=== PATIENT | male | born 2005 | race Caucasian/White ===

== ENCOUNTER 2025-06-15 13:25 | Emergency (ER) | payer SELFPAY ==
[2025-06-15 13:29] VITALS: BP 155/92; PULSE 87; RESP 24; TEMP 36.4; TEMP 36.8; O2SAT 100
[2025-06-15 13:34] VITALS: BP 150/105; PULSE 96; RESP 24; O2SAT 100
--- NOTE | 2025-06-15 13:41 | ED_ITS ---
HPI - Chest Pain General Chief Complaint: Chest Pain Stated Complaint: Overheated Time Seen by Provider: 06/15/25 13:25 Source: patient Mode of arrival: ambulatory Limitations: no limitations History of Present Illness HPI narrative: 19 yo M with no significant medical hx presents states he is sick from the heat. States dizzy, fatigued, vomiting at work. Sat down in triage chair, falling asleep in chair and then began c/o CP. 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 States has been drinking plenty of fluids. All systems reviewed and negative except as noted above. Related Data Home Medications ?Medication ?Instructions ?Recorded ?Confirmed ?Last Taken ?Type No Home Medications 06/15/25 06/15/25 Unknown History Allergies Allergy/AdvReac Type Severity Reaction Status Date / Time No Known Allergies Allergy Verified 06/15/25 13:45 PMFSH Comments At time of signature, agree with nursing past medical, surgical, social and family history. There is no relevant family history pertinent to the presenting complaint. Exam Narrative: GENERAL: This is a well-nourished, well-developed patient, pale, diaphoretic, pain distress HEAD: normocephalic, atraumatic. EYES: PERRL. Sclera clear/white. Vision is grossly intact. EARS: External ears normal, auditory canals clear and without drainage, TMs normal without perforation. Hearing grossly intact. NOSE: External nose normal with no obvious nasal discharge, nares without redness, no rhinorrhea. THROAT: Mucous membranes moist, posterior pharynx clear. NECK: Neck supple, non-tender without lymphadenopathy, masses or thyromegaly. CARDIOVASCULAR: tachycardic without murmurs, gallops, or rubs. RESPIRATORY: Clear to auscultation. tachypnea SKIN: warm, Dry, intact with no suspicious lesions or rash, good texture and turgor. NEURO: awake, alert, and oriented to person, place and time. There were no obvious focal neurologic abnormalities. EXTREMITIES: No joint tenderness, effusion, or edema noted. Course Course Level of Care: Express Care Visit Vital Signs Vital signs: reviewed Transfer Transfered to: [facility] Transportation: ALS Transfer rationale: transferring to ER for labs, hydration Accepting physician: Dr. Espinal MDM - Chest Pain MDM Narrative Medical decision making narrative: transferred to [facility] to treat dehydration/heat exhaustion. pt agrees with plan of care. Discharge Plan Discharge Clinical Impression: Sinus tachycardia, Chest pain, Acute dehydration Patient Disposition: Acute Care Hospital Condition: Stable Patient Language: Setswana Follow-up/Referrals: UNKNOWN,DOCTOR [Primary Care Provider] - Time of Disposition: 13:40
--- NOTE | 2025-06-15 13:50 | ECG_ITS ---
Test Date: 2025-06-15 13:36:50 Measurements Intervals [place] Rate: 91 P: 66 CO: 126 QRS: 86 QRSD: 100 T: 30 QT: 338 QTc: 417 Interpretive Statements SINUS RHYTHM INCOMPLETE RIGHT BUNDLE BRANCH BLOCK ST ELEVATION IN ANTERIOR LEADS, PROBABLY EARLY REPOLARIZATION PEAKED T WAVES- CONSIDER HYPERKALEMIA BASELINE ARTIFACT- I, III, AVR, AVL, AVF, V1-V6 ABNORMAL ECG No previous ECG available for comparison Electronically Signed On 06-15-2025 13:58:21 CDT by Konstantin Carr D.O.
--- NOTE | 2025-06-15 13:51 | ECG_ITS ---
Test Date: 2025-06-15 13:29:38 Measurements Intervals [place] Rate: 114 P: 72 NH: 131 QRS: 96 QRSD: 98 T: 18 QT: 311 QTc: 430 Interpretive Statements SINUS TACHYCARDIA RIGHT AXIS DEVIATION POSSIBLE LEFT ATRIAL ENLARGEMENT INCOMPLETE RIGHT BUNDLE BRANCH BLOCK MINIMAL Q WAVES- INFERIOR LEADS BASELINE ARTIFACT- I, II, III, AVR, AVL, AVF, V1-V6 ABNORMAL ECG No previous ECG available for comparison Electronically Signed On 06-15-2025 14:58:10 CDT by Konstantin Carr D.O.
== END 2025-06-15 13:37 | disposition short-term general hospital (02) ==
PROVIDERS: Emergency Provider Nurse Practitioner Family
DX: R00.0 Tachycardia, unspecified (principal); R07.9 Chest pain, unspecified; E86.0 Dehydration
CPT/HCPCS: 93005; 99215; G0463

== ENCOUNTER 2025-06-15 14:03 | Emergency (ER) | payer OTHER, SELFPAY ==
--- NOTE | ~2025-06-15 | CT_ITS ---
EXAMINATION: CTA chest PE abdomen pel DATE: 06/15/2025 16:58 CDT INDICATION: Epigastric pain and syncope . History of histoplasmosis. I TECHNIQUE: Computed tomographic angiography (CTA) of the chest was performed, along with multiple con tiguous axial images of the abdomen and pelvis with 100 mL Omnipaque-350 intravenous contrast. The do se-length product was 1060.22 mGy-cm. Maximum intensity projection 3D-reconstructions of the aorta an d other arteries were constructed by the technologist on a separate workstation. FINDINGS/OBSERVATIONS: PULMONARY ARTERIES: No filling defect is identified within the main or proximal pulmonary artery. The main pulmonary artery is not enlarged. THORACIC AORTA: No aneurysmal dilatation or dissection is present. The great vessels are intact LUNGS: 6 mm calcified nodule within the right middle lobe (axial series, image 56). 6 mm calcified nodule within the right middle lobe (axial series, image 61). 6 mm calcified nodule within the right lower lobe (axial series, image 78). 7 mm calcified nodule within the right middle lobe (axial series, image 91). 6 mm calcified nodule within the left upper lobe (axial series, image 93). 6 mm calcified nodule within the left upper lobe (axial series, image 90). 6.7 mm calcified nodule within the left lower lobe (axial series, image 102). 7 mm calcified nodule within the left upper lobe (axial series, image 89). 10 mm calcified nodule within the left upper lobe (axial series, image 83). The remainder of the lungs are clear. MEDIASTINUM: Infiltrative mediastinal soft tissue attenuation with bulky calcifications representing either lymphadenopathy versus fibrosing mediastinitis. Abnormal soft tissue attenuation is identified within the aortopulmonary window as well as the bilate ral pulmonary uvaldo, possibly demonstrating mass effect on the pulmonary arteries. BONES OF THE CHEST: No acute fracture. No significant degenerative disease. No lytic or blastic lesions. HEART: The heart is of normal size, without pericardial effusion. LIVER: The liver enhances homogeneously and is borderline enlarged measuring 19 cm in longitudinal dimension . GALLBLADDER AND BILIARY SYSTEM: The gallbladder is only minimally distended, and otherwise unremarkable. PANCREAS: The pancreas enhances homogeneously without ductal dilatation. SPLEEN: The spleen enhances homogeneously and is enlarged measuring 14 cm in longitudinal dimension. KIDNEYS: The bilateral kidneys enhance symmetrically without hydronephrosis or renal calculi. ADRENAL GLANDS: Unremarkable. GASTROINTESTINAL TRACT: Colonic diverticulosis without surrounding inflammatory change. APPENDIX: The air-filled appendix is of normal caliber (axial series, images 96 through 108). VASCULATURE: Unremarkable. No aneurysmal dilatation or significant stenosis. LYMPH NODES: No pathologically enlarged or morphologically suspicious lymph nodes within the retroperitoneum or at the root of the mesentery. PELVIC STRUCTURES: The bladder is minimally distended limiting its evaluation. The prostate gland is not enlarged. BODY WALL AND MUSCULOSKELETAL: Small fat-containing umbilical hernia. No significant degenerative disease within the lower thoracic or lumbosacral spine. 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 Innumerable calcified nodules, consistent with patient's history. Reviewed, dictated and finalized at location A. IMPRESSION: Findings within the chest which may represent fibrosing mediastinitis from susi ent's known histoplasmosis infection. Innumerable calcified nodules, consistent with patient's history.
--- NOTE | ~2025-06-15 | XR_ITS ---
XR chest 2V 06/15/2025 14:41 Indication: Chest Procedure: 2 view chest Comparison: No prior studies for comparison. Findings: Heart size normal. Right lower lobe suspicious for developing pneumonia. Prominent right hi lum, suspicious for lymphadenopathy. Impression: 1: Right lower lobe infiltrates, suspicious for pneumonia. 2: Prominent right hilum, suspicious for lymphadenopathy. Reviewed, dictated and finalized at location A. Impression: 1: Right lower lobe infiltrates, suspicious for pneumonia. 2: Prominent right hilum, suspicious for lymphadenopathy.
--- OUTSIDE RECORDS SUMMARY | 2025-06-15 14:10 | XMS_ITS | Clinical Summary ---
Author Organization [facility] Address [address] [place] [address] Care Team Providers Care Black Off Worker Name Role Phone Dre Belgicahesham Smith [facility] OFFIC[employer]-BOTTOM BRUSHER Primary Care Pr ovider Source Comments [facility],non-owned Affiliates and Associated Physician Practices is amultiple site organization consisting of ambulatory clinics and hospital sitesin [place], [place], [place] and [place]. This disclosure is being madepursuant to the Care Everywhere program and may not contain all information available regarding this patient. Last updated 18.[facility] [employer] Allergies Active Allergy Reactions Criticality Noted Date Comments Trazodone Headache,Vomiting High 07/07/2023 Medications * Be aware that medications may not be up to date on this document. Alwaysverify current medications with the patient. acetaminophen (Tylenol) 500 MG tablet Take 2 (two) tablets by mouth every 6 hours as needed for Fever or Pain Maximum allowable Acetaminophen amount = 4 Grams (4000 mg) / 24 hours. Active albuterol HFA (Proventil; Ventolin; Proair) 108 (90 Base) MCG/ACT inhaler INHALE 2 (TWO) PUFFS BY MOUTH EVERY 4 HOURS NEEDED FOR SHORTNESS OF BREATH OR WHEEZING 8 g 2 05/14/20 23 Active amitriptyline (Elavil) 10 MG tabletIndications :Chronic tension-type headache, not intractable,Moder ate episode of recurrent major depressive disorder (HCC),Anxiety,Ins omnia due to psychological stress TAKE 1 TABLET BY MOUTH EVERY DAY IN THE EVENING 30 tablet 09/25/20 23 Active omeprazole (PriLOSEC) 20 MG capsuleIndication s:Epigastric abdominal pain TAKE 1 CAPSULE BY MOUTH EVERY DAY 30 capsule 09/25/20 23 Active multivitamin daily tablet Take 1 (one) tablet by mouth daily with food Active ondansetron (Zofran) 4 MG tablet Take 1 (one) tablet by mouth every 6 hours as needed for Nausea/Vomiting 30 tablet 01/14/20 24 Active Active Problems Problem Noted Date Diagnosed Date Histoplasmosis 05/27/2023 Overview (05/27/2023): Histoplasma yeast CF Antibody <1:8 1:32 Assessment & Plan (05/29/2023 4:45 PM CDT): Assessment: -Result from Histoplasma yeast CF antibody was positive w/value of 1:32. Will treat with itraconazole t.i.d. for three days followed by daily for six weeks as per ID recommendations. Assessment & Plan (05/29/2023 1:54 PM CDT): Assessment: -Result from Histoplasma yeast CF antibody was positive w/value of 1:32. Will treat with itraconazole t.i.d. for three days followed by daily for six weeks as per ID recommendations. Assessment & Plan (05/27/2023 5:59 PM CDT): Assessment: -Result from Histoplasma yeast CF antibody was positive w/value of 1/32. -Not clear if positive finding is chronic or acute precipitating the right sided pleural effusion. Plan: -Consult with Infectious Disease to determine if treatment is needed for chronic vs acute infection. Hypertension 05/26/2023 Assessment & Plan (08/22/2023 11:44 AM CDT): Sharyn is an 18 y/o male presenting for follow up after hypertension was noted during hospitalization for pneumonia. During hospitalization, HTN was managed with hydralazine and PRN isradipine. He was not discharged with any BP medications. He has been monitoring home BP and most recent readings over the past month have been wnl and reassuring. BP today was 134/64. Hypertension during hospitalization likely due to stress and possible predisposition due to family history. Due to reassuring home BP, headaches are unlikely to be due to hypertension. Plan: - Recommended daily home BP checks for 1 week. Advised to call clinic with results to determine if further follow-up is needed at that time. - Follow-up UA results Assessment & Plan (05/29/2023 4:46 PM CDT): -Hypertension managed with hydralazine and isradipine PRN if SBP >140. Hydralazine ordered to be given after isradipine if SBP remains over 140. No current recommendation for outpatient BP meds. -One time dosage of IV Lasix 20 mg given on 05/27 for hypertension presumably related to fluid overload. -Told family that goal BP is to maintain <120/80. Recommend following up ELIZABETH if BP>130/80 for three separate measurements and if BP>140/90 after a single measurement with one additional repeat measurement (family given direct instruction and phone number for nephrology outpatient clinic). -Nephrology recommendation for outpatient includes at home monitoring w/BP cuff and nurse training for BP measurements with family. -Follow up with nephrology in 3 months. - Renin/angiotensin labs pending; no acute workup recommended. Assessment & Plan (05/29/2023 1:54 PM CDT): -Hypertension managed with hydralazine and isradipine PRN if SBP >140. Hydralazine ordered to be given after isradipine if SBP remains over 140. No current recommendation for outpatient BP meds. -One time dosage of IV Lasix 20 mg given on 05/27 for hypertension presumably related to fluid overload. -Told family that goal BP is to maintain <120/80. Recommend following up ELIZABETH if BP>130/80 for three separate measurements and if BP>140/90 after a single measurement with one additional repeat measurement (family given direct instruction and phone number for nephrology outpatient clinic). -Nephrology recommendation for outpatient includes at home monitoring w/BP cuff and nurse training for BP measurements with family. -Follow up with nephrology in 3 months. - Renin/angiotensin labs pending; no acute workup recommended. Assessment & Plan (05/28/2023 12:09 PM CDT): -Hypertension managed with hydralazine and isradipine PRN if SBP >140. Hydralazine ordered to be given after isradipine if SBP remains over 140. No current recommendation for outpatient BP meds. -One time dosage of IV Lasix 20 mg given on 05/27 for hypertension presumably related to fluid overload. -Told family that goal BP is to maintain <120/80. Recommend following up ELIZABETH if BP>130/80 for three separate measurements and if BP>140/90 after a single measurement with one additional repeat measurement (family given direct instruction and phone number for nephrology outpatient clinic). -Nephrology recommendation for outpatient includes at home monitoring w/BP cuff and nurse training for BP measurements with family. -Follow up with nephrology in 3 months. - Renin/angiotensin labs pending; no acute workup recommended. Assessment & Plan (05/27/2023 6:00 PM CDT): -Hypertension managed with hydralazine and isradipine PRN if SBP >140. Hydralazine ordered to be given after isradipine if SBP remains over 140. No current recommendation for outpatient BP meds. -One time dosage of IV Lasix 40 mg for hypertension presumably related to fluid overload -Nephrology recommendation for outpatient includes at home monitoring w/BP cuff and nurse training for BP measurements with family. -Follow up with nephrology in 3 months. -Told family that goal BP is to maintain <120/80. Recommend following up ELIZABETH if BP>130/80 for three separate measurements and if BP>140/90 after a single measurement with one additional repeat measurement (family given direct instruction and phone number for nephrology outpatient clinic). - Renin/angiotensin labs pending; no acute workup recommended. Assessment & Plan (05/26/2023 6:50 PM CDT): Hypertension managed with hydralazine and isradipine, echocardiogram normal, Renin/angiotensin labs pending, renal ultrasound with with increased velocity over left renal artery, will discuss with nephrology for interpretation. No additional acute management needed, but will need to follow with Nephrology. Pleural effusion, right 05/21/2023 Pneumonia of right lung due to infectious organi sm 05/21/2023 Assessment & Plan (05/29/2023 1:55 PM CDT): Assessment: Sharyn Naranjo is a 17 year old male with R sided PNA and moderate to large effusion on imaging as well as elevated WBC and inflammatory markers consistent with an infectious process. CT scan suggestive for prior granulomatous disease. Thoracentesis with pig-tail catheter placed by surgery on 05/23. Positive cultures for Streptococcus Intermedius were obtained. Positive results for Histoplasmosis CF anti-body were obtained as well. Likely that histoplasmosis is likely acute vs chronic and Streptococcus Intermedius may be responsible for pleural effusion as well. Chest U/S on 05/24 showed loculations in the right chest; surgery following and recommended TPA treatment for 3 days, starting 05/25. WBC, CRP have been downtrending. CMP wnl. Close monitoring with frequent assessments overnight for respiratory distress and fevers. Per ID, will discharge on itraconazole and ceftriaxone. Will coordinate ceftriaxone to be given IM at home by family member to complete 10 day course. Recommend follow-up with ID, see their note for further details. Plan: ID - Per ID: - As per ID recommendation, continue IV rocephin 50 mg/kg q24h for total of 10 days since chest tube placement. - Bartonella, legionella, TB Quantiferon gold studies negative - Histoplasmosis lab positive for Histoplasma CF antibody. -. AFB/fungal cx prelim- no acid fast bacilli, yeast, or hyphae - If current evaluation inconclusive, will need broad range PCR testing - Pleural fluid shows heavy PMNs, pansensitive Streptococcus intermedius - Trend CBC, BMP, CRP (CBC and CRP twice per week) - Per Surgery: Continue tPA treatment x3 days for right chest loculations noted on US FENGI - Full diet Neuro -Tylenol 1,000 mg PO q6hr for fever Cardio/Respiratory - End Tidal Monitoring - Strict I's and O's - CRM Full code Access: PIV X 1 Assessment & Plan (05/28/2023 5:14 PM CDT): Assessment: Sharyn Naranjo is a 17 year old male with R sided PNA and moderate to large effusion on imaging as well as elevated WBC and inflammatory markers consistent with an infectious process. CT scan suggestive for prior granulomatous disease. Thoracentesis with pig-tail catheter placed by surgery on 05/23. Positive cultures for Streptococcus Intermedius were obtained. Positive results for Histoplasmosis CF anti-body were obtained as well. Likely that histoplasmosis is likely acute vs chronic and Streptococcus Intermedius may be responsible for pleural effusion as well. Chest U/S on 05/24 showed loculations in the right chest; surgery following and recommended TPA treatment for 3 days, starting 05/25. WBC, CRP have been downtrending. CMP wnl. Close monitoring with frequent assessments overnight for respiratory distress and fevers. Per ID, will discharge on itraconazole and ceftriaxone. See ID note for further details, working to coordinate home ceftriaxone. Plan: ID - Per ID: - As per ID recommendation, continue IV rocephin 50 mg/kg q24h for total of 10 days since chest tube placement. Currently discussing continuation of IV antibiotics w/potential PICC placement through Friday05/28/2023 or IM administration after discharge. -Discontinue vancomycin 1500 m8h based on absence of fever for 24 hour period on 05/27. - DC IV azithromycin 500 mg q24h - Bartonella, legionella, TB Quantiferon gold studies negative - Histoplasmosis lab positive for Histoplasma CF antibody. -. AFB/fungal cx prelim- no acid fast bacilli, yeast, or hyphae - If current evaluation inconclusive, will need broad range PCR testing - Pleural fluid shows heavy PMNs, pansensitive Streptococcus intermedius - Trend CBC, BMP, CRP (CBC and CRP twice per week) - Per Surgery: Continue tPA treatment x3 days for right chest loculations noted on US FENGI - Full diet Neuro -Tylenol 1,000 mg PO q6hr for fever - Ketorolac IV 30 mg q6h - scheduled - Morphine IV 2 mg q4h PRN for severe pain Cardio/Respiratory - End Tidal Monitoring - Strict I's and O's - CRM Full code Access: PIV X 1 Assessment & Plan (05/27/2023 6:01 PM CDT): Assessment: Sharyn Naranjo is a 17 year old male with R sided PNA and moderate to large effusion on imaging as well as elevated WBC and inflammatory markers consistent with an infectious process. CT scan suggestive for prior granulomatous disease. Thoracentesis with pig-tail catheter placed by surgery on 05/23. Chest U/S on 05/24 showed loculations in the right chest; surgery following and recommended TPA treatment for 3 days, starting 05/25. WBC, CRP have been downtrending. CMP wnl. Close monitoring with frequent assessments overnight for respiratory distress and fevers. Plan: ID - Per ID: - As per ID recommendation, continue IV rocephin 50 mg/kg q24h for total of 10 days since chest tube placement -Discontinue vancomycin 1500 m8h based on absence of fever for 24 hour period on 05/27. - DC IV azithromycin 500 mg q24h - Bartonella, legionella, TB Quantiferon gold studies negative - Histoplasmosis lab positive for Histoplasma CF antibody. -. AFB/fungal cx prelim- no acid fast bacilli, yeast, or hyphae - If current evaluation inconclusive, will need broad range PCR testing - Pleural fluid shows heavy PMNs, pansensitive Streptococcus intermedius - Trend CBC, BMP, CRP (CBC and CRP twice per week) - Per Surgery: Continue tPA treatment x3 days for right chest loculations noted on US FENGI - Full diet Neuro -Tylenol 1,000 mg PO q6hr for fever - Ketorolac IV 30 mg q6h - scheduled - Morphine IV 2 mg q4h PRN for severe pain Cardio/Respiratory - End Tidal Monitoring - Strict I's and O's - CRM Full code Access: PIV X 1 Assessment & Plan (05/26/2023 6:51 PM CDT): Assessment: Sharyn Naranjo is a 17 year old male with R sided PNA and moderate to large effusion on imaging as well as elevated WBC and inflammatory markers consistent with an infectious process. CT scan suggestive for prior granulomatous disease. Thoracentesis with pig-tail catheter placed by surgery on 05/23. Chest U/S on 05/24 showed loculations in the right chest; surgery following and recommended TPA treatment for 3 days, starting 05/25. WBC, CRP have been downtrending. CMP wnl. Close monitoring with frequent assessments overnight for respiratory distress and fevers. Plan: ID - Per ID: - Continue IV vancomycin 1500 mg q8h and rocephin 50 mg/kg q24h - DC IV azithromycin 500 mg q24h - Bartonella, legionella, TB Quantiferon gold studies negative - Histoplasmosis labs pending. AFB/fungal cx prelim- no acid fast bacilli, yeast, or hyphae - If current evaluation inconclusive, will need broad range PCR testing - Anticipate 4 total weeks of antibiotics; will need PICC line when stable - Pleural fluid shows heavy PMNs, pansensitive Streptococcus intermedius - Trend CBC, BMP, CRP (CBC and CRP twice per week) - Per Surgery: Continue tPA treatment x3 days for right chest loculations noted on US FENGI - D5NS at 145 ml/hr - maintenance IVF Neuro -Tylenol 1,000 mg PO q6hr for fever - Ketorolac IV 30 mg q6h - scheduled - Morphine IV 2 mg q4h PRN for severe pain Cardio/Respiratory - End Tidal Monitoring - Strict I's and O's - CRM Full code Access: PIV X 1 Assessment & Plan (05/25/2023 6:47 PM CDT): Assessment: Sharyn Naranjo is a 17 year old male with R sided PNA and moderate to large effusion on imaging as well as elevated WBC and inflammatory markers consistent with an infectious process. CT scan suggestive for prior granulomatous disease. Thoracentesis with pig-tail catheter placed by surgery on 05/23. Chest U/S on 05/24 showed loculations in the right chest; surgery following and recommended TPA treatment for 3 days, starting 05/25. Has since put out ~700 mL from tube. WBC, CRP have been downtrending. CMP wnl. Close monitoring with frequent assessments overnight for respiratory distress and fevers. Plan: ID - Per ID: - Continue IV vancomycin 1500 mg q8h and rocephin 50 mg/kg q24h - DC IV azithromycin 500 mg q24h - Bartonella, legionella, TB Quantiferon gold studies pending - Histoplasmosis, blastomyces labs pending. AFB/fungal cx prelim- no acid fast bacilli, yeast, or hyphae - If current evaluation inconclusive, will need broad range PCR testing - Anticipate 4 total weeks of antibiotics; will need PICC line when stable - BG prelim shows no growth - Pleural fluid shows heavy PMNs, no organisms - Repeat CBC, BMP, CRP tomorrow (CBC and CRP twice per week) - Per Surgery: Continue tPA treatment x3 days for right chest loculations noted on US FENGI - D5NS at 145 ml/hr - maintenance IVF Neuro -Tylenol 1,000 mg PO q6hr for fever - Ketorolac IV 30 mg q6h - scheduled - Morphine IV 2 mg q4h PRN for severe pain Cardio/Respiratory - End Tidal Monitoring - Strict I's and O's - CRM Full code Access: PIV X 1 Assessment & Plan (05/24/2023 5:50 PM CDT): Assessment: Sharyn Naranjo is a 17 year old male with R sided PNA and moderate to large effusion on imaging as well as elevated WBC and inflammatory markers consistent with an infectious process. CT scan suggestive for prior granulomatous disease. Thoracentesis with pig-tail catheter placed by surgery on 05/23. Total output from chest tube 480 mL (80 mL in the past 24 hrs). Chest U/S preliminary read reveals loculations, diminished but present effusion, and debri; surgery following. Radiology with concern for acute Histoplasmosis. Per ID today, will wait for fluid cultures to grow for 48 hrs before considering abx txt for Histo. WBC, CRP, downtrending. BMP wnl, Cr 0.86 today (see lab section). Close monitoring with frequent assessments overnight for respiratory distress and fevers. Plan: ID - IV vancomycin 1500 mg q8h - IV rocephin 50 mg/kg q24h - Iv azithromycin 500 mg q24h x 5 days -Pleural fluid culture no growth, heavy PMN - Per ID: -Bartonella, legionella, TB Quantiferon gold studies. Pending -histoplasmosis, blastomyces labs, and AFB/fungal cx pending. -If fluid cx neg, will order broad-range PCR study -Pending lab results, will plan for de-escalation of abx - Follow blood culture from OSH -Repeat BMP, CRP tomorrow. Vancomycin level/trough tomorrow. FENGI - D5NS at 145 ml/hr - maintenance IVF Neuro -Tylenol 1,000 mg PO q6hr for fever - Ketorolac IV 30 mg q6h - scheduled - Morphine IV 2 mg q4h PRN for severe pain Cardio/Respiratory - End Tidal Monitoring - Strict I's and O's - CRM Full code Access: PIV X 1 Assessment & Plan (05/23/2023 5:58 PM CDT): Assessment: Sharyn Naranjo is a 17 year old male with R sided PNA and moderate to large effusion on imaging as well as elevated WBC and inflammatory markers consistent with an infectious process. CT scan suggestive for prior granulomatous disease. Thoracentesis with pig-tail catheter placed by surgery on 05/23. Today, 150 mL of output from drain, surgery monitoring. WBC 30.4, CRP 39.3, BMP wnl. Goal for pain management. Plan: ID - IV vancomycin 1500 mg q8h - IV rocephin 50 mg/kg q24h - Iv azithromycin 500 mg q24h x 5 days -Pleural fluid culture no growth, heavy PMN - Per ID: -Today recommended bartonella, legionella, TB Quantiferon gold studies. Pending -histoplasmosis, blastomyces labs, and AFB/fungal cx pending. -If fluid cx neg, will order broad-range PCR study -Pending lab results, will plan for de-escalation of abx - Follow blood culture from OSH -Repeat BMP, CRP tomorrow. Vancomycin level/trough tomorrow. FENGI - D5NS at 145 ml/hr - maintenance IVF Neuro -Tylenol 1,000 mg PO q6hr for fever - Ketorolac IV 30 mg q6h - scheduled - Morphine IV 2 mg q4h PRN for severe pain Cardio/Respiratory - Consider Pulm consult for CT findings of prior granulomatous disease - End Tidal Monitoring - Strict I's and O's - CRM Full code Access: PIV X 1 Assessment & Plan (05/22/2023 5:43 PM CDT): Assessment: Sharyn Naranjo is a 17 year old male with R sided PNA and moderate to large effusion on imaging as well as elevated WBC and inflammatory markers consistent with an infectious process. CT scan suggestive for prior granulomatous disease. Thoracentesis with pig-tail catheter placed today by OR. Repeat WBC and procal downtrending, BMP wnl. Plan: ID - IV vancomycin 1500 mg q8h - IV rocephin 50 mg/kg q24h - Iv azithromycin 500 mg q24h x 5 days -Pleural fluid culture, gram-stain, protein labs pending - Per ID: -histoplasmosis, blastomyces labs, and AFB/fungal cx pending. -If fluid cx neg, will order broad-range PCR study -Pending lab results, will plan for de-escalation of abx - Follow blood culture from OSH -Repeat BMP, CRP tomorrow. Vancomycin level/trough tomorrow. FENGI - D5NS at 145 ml/hr - maintenance IVF Neuro - Ketorolac IV 30 mg q6h - scheduled - Morphine IV 2 mg q4h PRN for severe pain Cardio/Respiratory - Consider Pulm consult for CT findings of prior granulomatous disease - End Tidal Monitoring - Strict I's and O's - CRM Full code Access: PIV X 1 Assessment & Plan (05/21/2023 11:28 PM CDT): Assessment: Sharyn Naranjo is a 17 year old male with a hx of asthma and CT documented recent evidence of prior granulomatous disease with a one week history of productive cough, fever and worsening right sided chest pain. Patient diagnosed with R sided PNA and moderate to large effusion on imaging as well as elevated WBC and inflammatory markers consistent with an infectious process. In the setting of a complicated pneumonia with large effusion seen on CT - management does entail thoracocentesis with IV antibiotics. But on literature review and as per recent guidelines - in an otherwise stable patient with minimal 02 requirement a trial of IV antibiotics with 24-72 hours can be carried out. If showing improvement can hold off on thoracentesis, if worsening - the above should be considered. Most common pathogens causing complicated PNA include S.pneumoniae, Strep pyogenes as well as staph aureus - with the recent increase in effusions associated with staph and strep pyogenes - IV vanc + IV rocephin + IV azithromycin (for atypicals) are the broad antibiotics of choice. CT scan suggestive for prior granulomatous disease - important to consider underlying illnesses (infectious vs noninfectious) like pulmonary histoplasmosis, sarcoidosis, hypersensitivity pneumonitis etc. No specific exposures documented. Plan: - Admit to [facility] - Dr Lonny Alves - IV vancomycin 1500 mg q8h - IV rocephin 50 mg/kg q24h - Iv azithromycin 500 mg q24h x 5 days - D5NS at 145 ml/hr - maintenance IVF - Ketorolac IV 30 mg q6h - scheduled - Morphine IV 2 mg q4h PRN for severe pain - Chest Xray in AM - Follow blood culture from OSH - Repeat CBC, BMP, Procal in AM on 05/21 - Consider ID consult if lack of improvement in findings/ more targeted anitbiotic coverage - Consider Pulm consult for CT findings of prior granulomatous disease - Consider thoracocentesis with pleural fluid cultures if patient not improving - Strict I's and O's - CRM - End Tidal Monitoring - Full code Access: PIV X 1 Resolved Problems Problem Noted Date Diagnosed Date Resolved Date Moderate persistent asthma w ith acute exacerbation 01/28/2024 02/12/2024 Immunizations Immunization Administration Dates Next Due DTAP, HISTORIC VACCINE 02/22/2010,2005,2005,08/26 DTaP VACCINE IM (6wk-6yrs) 05/05/2008 HEP A PEDS 2 DOSE 02/22/2010,05/05/2008 HEP B VACCINE 2005,2005,2005 HIB VACCINE 2006, 6,2005,08/26 Human Papilloma Virus Nineva lent Vaccine 04/26/2021,11/30/2020,09/25/2020 INFLUENZA VACCINE, QUADR. (F LUZONE; FLULAVAL; FLUARIX; AFLURIA QUADRIVALENT; 6MO+), 0.5 ML (IIV4) 09/01/2017 MENINGOCOCCAL ACWY (MCV4P) VAC IM 08/15/2016 MMR VACCINE 02/22/2010,2006 POLIO IPV 02/22/2010, 6,2005,08/26 Pneumococcal Pcv13 Conj 03/04/2006,2005, TDAP, HISTORIC VACCINE 08/15/2016 VARICELLA 02/22/2010,05/05/2008 Family History Medical History Relation Name Comments Diabetes; unknown type Father Hypertension Maternal Grandmother Bipolar Disorder Mother Diabetes; unknown type Mother Hypertension Mother Relation Name Status Comments Father Maternal Grandmother Mother Social History Tobacco Use Types Packs/Day Years Used Date Smoking Tobacco: Never Passive Smoke Exposure: Past Smokeless Tobacco: Never Tobacco Cessation:Counseling Given: Not Answered Alcohol Use Standard Drinks/Week Comments Never 0 (1 standard drink = 0.6 oz pur e alcohol) PHQ-2 Answer Date Recorded Patient Health Questionnaire-2 Score 0 02/12/2024 Sex and Gender Information Value Date Recorded Sex Assigned at Not on file Legal Sex Male 12:04 PM CDT Gender Identity Not on file Sexual Orientation Not on file Last Filed Vital Signs Vital Sign Reading Time Taken Comments Blood Pressure 150/80 02/12/2024 10:52 AM CDT Pulse 83 02/12/2024 10:52 AM CDT Temperature 36.2 C (97.2 F) 02/12/2024 10:52 AM CDT Respiratory Rate 20 02/12/2024 10:5 2 AM CDT Oxygen Saturation 98% 02/12/2024 10: 52 AM CDT Inhaled Oxygen Concentration - - Weight 112.1 kg (247 lb 3.2 oz) 024 10:52 AM CDT Height 185.4 cm (6' 1) 02/12/2024 10:5 2 AM CDT Body Mass Index 32.61 02/12/2024 10:52 AM CDT Body Mass Index Percentile 96.79% 02/11 10:52 AM CDT Growth Chart: CDC (Boys, 2-2 0 Years) Plan of Treatment Health Maintenance Due Date Last Done Comments HIV SCREENING 2020 MENINGOCOCCAL (Group B) VACCINE SHARED DECISION-MAKING (1 of 2 - Standard) 2021 HEPATITIS C SCREENING 06/21/2023 COVID-19 VACCINE (2 - season) 2024 10/07/2023 DEPRESSION SCREENING 11/10/2024 01/09/2024, 12/31/19 23 INFLUENZA VACCINE (#1) 2025 10/06/2023, 2016 DTAP/TDAP/TD VACCINES (7 - Td or Tdap) 08/15/2026 08/15/2016, 02/22/2010, 05/05/2008, Additional history exists ZOSTER VACCINE (1 of 2) 2055 HEPATITIS B VACCINE Completed 2005, 2005, 2005 PNEUMOCOCCAL VACCINE Aged Out 03/04/2006, 2005, 2005 No longer eligible based on patient's age to complete this topic HIB VACCINE Completed 2006, 02/09, 2005, Additional history exists MENINGOCOCCAL GROUPS A/C/Y/W VACCINE Aged Out 08/15/2016 No longer eligible based on patient's age to complete this topic HPV VACCINE Completed 04/26/2021, 11/11, 09/25/2020 Insurance PAYOR GENERIC PAYOR GENERIC PAYOR GENERIC Advance Directives * Full Code (Latest Code Status on File) Date Activated Date Inactivated Comments 05/21/2023 8:31 PM 05/29/2023 3:22 PM Care Teams Black Off Worker Relationship Specialty Start Date End Date Belgica Erickson, EARNESTINE-BOTTOM BRUSHER [address] [id number] PCP - General Nurse Practitioner 12/31/22
[2025-06-15 14:12] VITALS: BP 162/62; PULSE 84; RESP 24; RESP 28; TEMP 36.4; O2SAT 99
[2025-06-15 14:15] VITALS: BP 162/62; PULSE 83; RESP 30; TEMP 36.3; O2SAT 99
--- NOTE | 2025-06-15 14:18 | ECG_ITS ---
Test Date: 2025-06-15 14:21:26 Measurements Intervals [place] Rate: 92 P: 71 VA: 127 QRS: 80 QRSD: 97 T: 17 QT: 344 QTc: 427 Interpretive Statements SINUS RHYTHM INCOMPLETE RIGHT BUNDLE BRANCH BLOCK ST ELEVATION IN DIFFUSE LEADS, PROBABLY EARLY REPOLARIZATION PEAKED T WAVES- CONSIDER HYPERKALEMIA BASELINE ARTIFACT- I, II, III, AVR, AVL, AVF, V1-V6 ABNORMAL ECG Compared to ECG 06/15/2025 13:36:50 NO SIGNIFICANT CHANGE Electronically Signed On 06-15-2025 15:00:09 CDT by Konstantin Crar D.O.
[2025-06-15 14:36] LABS: Hematocrit 47.2 % (42.0-52.0); Hemoglobin 17.1 g/dL (14.0-18.0); Immature Granulocyte Percent A 0.2 % (0-0.5); Lymphocytes Absolute Auto 1.30 K/mm3 (0.9-3.2); Mean Corpuscular HGB Conc 36.2 g/dl (32-36); Mean Corpuscular Hemoglobin 30.3 pg (26-34); Mean Corpuscular Volume 83.7 fl (80-100); Nucleated Red Blood Cells Absolute Auto 0.000 K/mm3 (0.0-0.012); Nucleated Red Blood Cells Perc 0.0 % (0.0-0.2); Platelet Count Result 291 k/mm3 (150-375); Red Blood Count 5.64 M/mm3 (4.6-6.20); White Blood Count 8.3 K/mm3 (4.5-10.0)
[2025-06-15 14:47] LABS: INR 1.1; Prothrombin Time 14.2 Seconds (11.1-14.7)
[2025-06-15] MEDS: SODIUM CHLORIDE 0.9% IV 3,000 ML 999 ML IV CONT (14:47)
[2025-06-15 14:48] LABS: Partial Thromboplastin Time 29.4 Seconds (22.3-36.8)
[2025-06-15 14:49] LABS: Alanine Aminotransferase 34 U/L (6-50); Albumin Level 5.5 g/dL (3.7-5.6); Alkaline Phosphatase 102 U/L (58-237); Anion Gap 15 mmol/L (4-12); Aspartate Amino Transferase 38 U/L (17-59); Bilirubin,Total 1.8 mg/dL (0.2-1.3); Blood Urea Nitrogen 19 mg/dL (8-21); Calcium 10.8 mg/dL (8.9-10.7); Carbon Dioxide 20 mmol/L (22-30); Chloride 102 mmol/L (98-107); Estimated CRCL calculation 86 ml/min; Estimated Glomerular Filt Rate > 60; Glucose 103 mg/dL (65-110); Lipase 39 U/L (23-300); Potassium 4.0 mmol/L (3.4-5.0); Sodium 137 mmol/L (134-143); Total Protein 9.7 g/dL (6.3-8.6)
[2025-06-15 14:57] LABS: Creatine Kinase 639 U/L (55-170)
[2025-06-15 15:00] LABS: Troponin I < 0.012 ng/mL (0.000-0.034)
[2025-06-15] MEDS: ACETAMINOPHEN 500 MG TABLET 1000 MG PO (15:10)
--- NOTE | 2025-06-15 15:32 | ED_ITS ---
HPI - General Adult General Chief complaint: Recheck/Abnormal Lab/Rx Stated complaint: n/v, heat exposure Time Seen by Provider: 06/15/25 14:30 History of Present Illness HPI narrative: This is a 19-year-old male presenting for possible heat exhaustion. Patient said that he has been feeling nauseous in the morning for the last 2 days. 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 He did not fall off the roof. Since then he has been very shaky and weak. He says that he has chest pain in the center of his chest that is nonradiating. Feels winded. Patient has a history of histo blastomycosis. Patient denies fevers, abdominal pain, diarrhea or urinary symptoms. Denies alcohol or drug. Related Data Home Medications ?Medication ?Instructions ?Recorded ?Confirmed ?Last Taken ?Type No Home Medications 06/15/25 06/15/25 Unknown History Allergies Allergy/AdvReac Type Severity Reaction Status Date / Time No Known Allergies Allergy Verified 06/15/25 14:28 Exam 2 Narrative: APPEARANCE: Ill-appearing, tremulous Head: atraumatic. EYES: EOMI, NOSE: Atraumatic NECK: Trachea midline RESPIRATORY: No increased rate of breathing clear to auscultation CARDIOVASCULAR: RRR, no peripheral ABDOMINAL: Non-distended soft nontender MUSCULOSKELETAl: No obvious deformities NEURO: Alert. Moving 4/4 extremities SKIN:: Warm, dry. Normal color PSYCHIATRIC: Very anxious Course Vital Signs Vital signs: Vital Signs Temperature 97.6 F 06/15/25 14:12 Pulse Rate 84 06/15/25 14:12 Respiratory Rate 24 H 06/15/25 14:12 Blood Pressure 162/62 H 06/15/25 14:12 Pulse Oximetry 99 06/15/25 14:12 Oxygen Delivery Room Air 06/15/25 14:12 Temperature 97.6 F 06/15/25 14:12 Pulse Rate 84 06/15/25 14:12 Respiratory Rate 28 H 06/15/25 14:12 Blood Pressure 162/62 H 06/15/25 14:12 Pulse Oximetry 99 06/15/25 14:12 Oxygen Delivery Room Air 06/15/25 14:12 Medical Decision Making [facility] Narrative Medical decision making narrative: -Course: 19-year-old male presenting after a syncopal event at work while working in the 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 On arrival patient is toxic appearing, he is diaphoretic and tremulous. Patient given 3 L of normal saline. Given his ill appearance a broad workup was obtained. CT chest abdomen pelvis showed multiple calcified nodules in his lungs which are likely residual finding from his histoplasmosis. No acute findings. Patient received 3 L of fluid on re- evaluation is dramatically improved. He now has stable vital signs and is resting comfortably in bed. Results were discussed with the patient is comfortable being discharged home. I have encouraged him to follow up with his infectious disease doctor in regards to the numerous calcified lung nodules and areas of fibrosis in the mediastinum. Given return precautions. 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 Vital Signs Vital Signs: Vital Signs Temperature 97.6 F 06/15/25 14:12 Pulse Rate 84 06/15/25 14:12 Respiratory Rate 24 H 06/15/25 14:12 Blood Pressure 162/62 H 06/15/25 14:12 Pulse Oximetry 99 06/15/25 14:12 Oxygen Delivery Room Air 06/15/25 14:12 Temperature 97.6 F 06/15/25 14:12 Pulse Rate 84 06/15/25 14:12 Respiratory Rate 28 H 06/15/25 14:12 Blood Pressure 162/62 H 06/15/25 14:12 Pulse Oximetry 99 06/15/25 14:12 Oxygen Delivery Room Air 06/15/25 14:12 Lab Data 06/15/25 14:30 06/15/25 14:30 Labs: Lab Results 06/15/25 Range/Units 14:30 WBC 8.3 (4.5-10.0) K/mm3 RBC 5.64 (4.6-6.20) M/mm3 Hgb 17.1 (14.0-18.0) g/dL Hct 47.2 (42.0-52.0) % MCV 83.7 (80-100) fl MCH 30.3 (26-34) pg MCHC 36.2 H (32-36) g/dl RDW 12.0 (11.5-14.5) % Plt Count 291 (150-375) k/mm3 MPV 11.7 H (7.4-10.4) fl Immature Gran % (Auto) 0.2 (0-0.5) % Neut % (Auto) 71.4 (45.5-73.1) % Lymph % (Auto) 15.7 L (18.3-44.2) % [place] % (Auto) 11.6 H (2.6-8.5) % Eos % (Auto) 0.1 (0-4.4) % Baso % (Auto) 1.0 (0.2-1.2) % Lymph # (Auto) 1.30 (0.9-3.2) K/mm3 [place] # (Auto) 1.0 H (0.1-0.6) K/mm3 Eos # (Auto) 0.0 (0-0.3) K/mm3 Baso # (Auto) 0.1 (0.0-0.1) K/mm3 Abs Immat Gran (auto) 0.02 (0.00-0.031) K/mm3 Absolute Neuts (auto) 5.9 (1.3-6.7) K/mm3 Absolute Nucleated RBC 0.000 (0.0-0.012) K/mm3 Nucleated RBC % 0.0 (0.0-0.2) % PT 14.2 (11.1-14.7) Seconds INR 1.1 APTT 29.4 (22.3-36.8) Seconds Sodium 137 (134-143) mmol/L Potassium 4.0 (3.4-5.0) mmol/L Chloride 102 (98-107) mmol/L Carbon Dioxide 20 L (22-30) mmol/L Anion Gap 15 H (4-12) mmol/L BUN 19 (8-21) mg/dL Creatinine 1.41 H (0.7-1.3) mg/dL Estim Creat Clear Calc 86 ml/min Estimated GFR > 60 (59 - ) Glucose 103 (65-110) mg/dL Calcium 10.8 H (8.9-10.7) mg/dL Total Bilirubin 1.8 H (0.2-1.3) mg/dL AST 38 (17-59) U/L ALT 34 (6-50) U/L Alkaline Phosphatase 102 (58-237) U/L Total Creatine Kinase 639 H (55-170) U/L Troponin I < 0.012 (0.000-0.034) ng/mL Total Protein 9.7 H (6.3-8.6) g/dL Albumin 5.5 (3.7-5.6) g/dL Lipase 39 (23-300) U/L Ethyl Alcohol < 10 (<10) mg/dL Discharge Plan Discharge Clinical Impression: Heat exhaustion Patient Disposition: Home Condition: Stable Instructions: Antibiotic Form, Heat Exhaustion (ED) Additional Instructions: He was seen emergency department for heat exhaustion. Please make sure you are drinking plenty fluids and taking breaks to cool off while at work. Your CT of the chest showed multiple calcified nodules and some areas of fibrosis in her mediastinum. I suspect that these are sequelae of your histoplasmosis infection, however please follow-up with your infectious disease doctor for further management. Patient Language: Djiboutian Prescriptions: No Action No Home Medications Follow-up/Referrals: PHYSICIAN,MEDICAL ASSISTANT SUPERVISOR [Non-Staff] -
--- OUTSIDE RECORDS SUMMARY | 2025-06-15 15:39 | XMS_ITS | Clinical Summary ---
Author Organization [facility] Address [address] [place] [address] Care Team Providers Care Backup Administrator Name Role Phone Dre Belgicahesham Smith HOTEL LOBBY CONCIERGE-HAMMER SMITH Primary Care Pr ovider Source Comments [facility],non-owned Affiliates and Associated Physician Practices is amultiple site organization consisting of ambulatory clinics and hospital sitesin [place], [place], [place] and [place]. This disclosure is being madepursuant to the Care Everywhere program and may not contain all information available regarding this patient. Last updated 18.[facility] [place] Allergies Active Allergy Reactions Criticality Noted Date [...] is to maintain <120/80. Recommend following up ELIZABTEH if BP>130/80 for three separate measurements and [...] 8:31 PM 05/29/2023 3:22 PM Care Teams Backup Administrator Relationship Specialty Start Date End Date Belgica Erickson, EARNESTINE-HAMMER SMITH [address] [id number] PCP - General Nurse Practitioner 12/31/22
[2025-06-15 16:23] LABS: Add Urine Microscopic? YES; Appearance Urine Clear (Clear); Glucose Urine UA Negative (Negative); Leukocyte Esterase Ur Trace LEU/UL (Negative); Need Manual Microscopic Reviewed; Nitrate Urine Negative (Negative); Non Pathogenic Casts >20; Specific Grav Ur 1.030 (1.001-1.035)
[2025-06-15 16:36] LABS: Cannabinoid Screen Urine Positive (Negative)
--- NOTE | 2025-06-15 17:18 | ECG_ITS ---
Test Date: 2025-06-15 17:24:52 Measurements Intervals [place] Rate: 60 P: 37 GA: 147 QRS: 82 QRSD: 97 T: 40 QT: 406 QTc: 409 Interpretive Statements SINUS RHYTHM ST ELEVATION IN DIFFUSE LEADS, PROBABLY EARLY REPOLARIZATION PEAKED T WAVES- CONSIDER HYPERKALEMIA BASELINE ARTIFACT- I, III, AVL, V1 ABNORMAL ECG Compared to ECG 06/15/2025 14:21:26 NO SIGNIFICANT CHANGE Electronically Signed On 06-15-2025 18:23:02 CDT by Konstantin Carr D.O.
[2025-06-15 17:53] LABS: Troponin I < 0.012 ng/mL (0.000-0.034)
[2025-06-15 18:02] VITALS: BP 151/65; PULSE 64; RESP 16; TEMP 36.6; O2SAT 99
[2025-06-15 18:17] VITALS: BP 139/71; PULSE 71; RESP 16; TEMP 36.7; O2SAT 98
== END 2025-06-15 18:18 | disposition home or self-care (01) ==
PROVIDERS: Emergency Provider Emergency Medicine
DX: T67.5XXA Heat exhaustion, unspecified, initial encounter (principal); Z86.19 Personal history of other infectious and parasitic diseases; R91.8 Other nonspecific abnormal finding of lung field; X30.XXXA Exposure to excessive natural heat, initial encounter; I45.10 Unspecified right bundle-branch block; R94.31 Abnormal electrocardiogram [ECG] [EKG]
CPT/HCPCS: 36415; 71046; 71275; 74177; 80053; 80307; 81001; 82077; 82550; 83690; 84484; 85025; 85610; 85730; 87040; 93005; 96360; 96361; 99284; A9270; J7030; Q9967